=== PATIENT | female | born 1990 | race Caucasian/White ===

== ENCOUNTER 2024-03-15 00:36 | Emergency (ER) | payer BC, SELFPAY ==
[2024-03-15 00:40] VITALS: BP 130/80
[2024-03-15 01:00] LABS: % Basophils 0.5 % (0-2); % Eosinophils 0.5 % (0-6); % Immature Granulocytes 0.1 % (0-0.5); % Lymphocytes 48.4 % (20.5-51.1); % Monocytes 7.3 % (1.7-9.3); % Neutrophils 43.2 % (42.2-75.2); Absolute Lymphocytes 3.8 10^3/uL (1.2-3.4); Absolute Monocytes 0.6 10^3/uL (0.1-0.6); Absolute Neutrophils 3.4 10^3/uL (1.4-6.5); Hematocrit 37.2 % (37.0-47.0); Hemoglobin 12.5 g/dL (12.0-16.0); Mean Corp Hgb Conc. 33.6 g/dL (33.0-37.0); Mean Corpuscular Hgb 29.7 pg (27.0-31.0); Mean Corpuscular Volume 88.4 fL (81.0-99.0); Nucleated Red Blood Cells % 0 %; Platelet Count 308 10^3/uL (130-400); Red Blood Cell Count 4.21 10^6/uL (4.20-5.40); Red Cell Dist. Width 12.3 % (11.5-14.5); White Blood Cell Count 7.9 10^3/uL (4.8-10.8)
[2024-03-15 01:03] VITALS: BP 118/75
[2024-03-15 01:11] LABS: HCG, Serum Qualitative Screen Negative
[2024-03-15 01:26] LABS: Troponin I < 0.012 ng/ml
[2024-03-15 01:30] LABS: ALT (SGPT) 17 U/L (0-35); AST (SGOT) 20 U/L (14-36); Albumin 4.9 g/dl (3.5-5.0); Alkaline Phosphatase 57 U/L (38-126); Blood Urea Nitrogen 13 mg/dl (7-17); Calcium 10.1 mg/dl (8.4-10.2); Carbon Dioxide 26 mmol/L (22-30); Chloride 101 mmol/L (98-107); Glucose 118 mg/dl (70-99); Potassium 3.5 mmol/L (3.5-5.1); Sodium 138 mmol/L (135-145); Total Bilirubin 0.5 mg/dl (0.2-1.3); Total Protein 7.9 g/dl (6.3-8.2); eGFR > 60.00
[2024-03-15 02:00] VITALS: BP 122/79; BMI 19.6
[2024-03-15] MEDS: TORADOL 30 MG IM (02:29)
--- NOTE | 2024-03-15 02:58 | ED.GENMED ---
History of Present Illness
General
Chief Complaint: Chest Pain
Source: patient and spouse
Exam Limitations: none
Time Seen by Provider: 03/15/24 02:14
Nursing documentation reviewed up to this point in time: agreed with
History of Present Illness
History of Present Illness:
This is a 33-year-old woman with no significant past medical history save for anxiety. She admits to some chronic left scapular pain that generally improves when her massages her left scapular region. More recently over the past 5 days she
has had some left lateral thoracic pain that seems worse with palpation over left lateral intercostal/rib region, improves with occasional doses of Tylenol or ibuprofen 'when I remember to take them' but admits to not being consistent with
nyhi-sek-ryccqae pain medication. Pain is improved with local lidocaine patch as well. She denies cough nor shortness of breath, pain is not worsened when she takes a deep breath. No fever no chills, no leg pain or swelling. She denies neck
pain. No headache. No palpitations. No nausea nor vomiting nor abdominal pain. No rash. No weakness or numbness. No arm pain nor weakness.
She is right-hand dominant and admits that she generally carries her 2-year-old son on her left hip and has been more active, wrapping presents excetra over the past week or 2 ago.
No recent travel.
She does not believe she is , last menstrual period 1 month ago, she is due this week.
She takes no medicines on a regular basis.
Past History
Past History
ED Past Medical History: Psychiatric (Anxiety)
ED Past Surgical History: Orthopedic (Ankle) and Other ([place] teeth)
Social History
Tobacco: Non-smoker
Alcohol: Occasional
Drug: None
Personal:
Living: with family
Employment: Not employed
Family History
Family History: Other (Noncontributory)
Phy Exam
Physical Exam
Physical Exam:
GENERAL: 33-year-old woman appears her stated age, awake and alert, pleasant, appears in no acute distress. is accompanying.
EYE: anicteric
NECK: Supple, nontender, no meningismus, no significant adenopathy.
ENT: oral mucosa is moist. No rhinorrhea.
CARDIAC: Regular rate and rhythm. no murmur. No rub.
LUNGS: Clear breath sounds bilaterally, no acute respiratory distress, no wheezes/rales/rhonchi. Mild tenderness left lateral chest wall. Palpation seems to exactly reproduce patient's pain complaint. There is no rash. No soft tissue swelling.
ABDOMEN: Soft, nondistended, without focal tenderness, no r/g, no cvat. normoactive BS.
BACK: No midline bony tenderness. Mild tenderness left medial parascapular region.
NEUROLOGICAL: Alert and oriented x3, no focal neuro deficits. Gait is cas[place] and steady.
SKIN: Warm and dry, normal color, skin intact. No rash.
MUSCULOSKELETAL: No C/C/E. peripheral pulses are full and equal b/l. No palpable tenderness.
PSYCH: Normal and appropriate interaction.
Scores
Heart Score for Chest Pain Patients
STEMI patient?: No
History: Slightly or Non-Suspicious
ECG: Normal
Age: </= 45 years
Risk Factors: No Risk Factors
Troponin: </= Normal Limit
Heart Score for Chest Pain Patients: 0
Heart Score Risk: 2.5% MACE over next 6 weeks
Course
Orders/Labs/Results
Orders:
Orders
03/15/24 00:37
Electrocardiogram (*1) Urgent
Reason for Study: Chest Pain
EKG- Treatment ONCE
Test Result ONCE
03/15/24 00:52
Complete Blood Count/With Diff Urgent
Comprehensive Metabolic Panel Urgent
HCG, Serum Qualitative Screen Urgent
Troponin I Urgent
03/15/24 02:24
Ketorolac [Toradol] 30 mg IM NOW STA
03/15/24 02:25
CR Chest - 2 Views Urgent
Comment:
Reason For Exam: left lateral chest pain x 5 days
Abnormal Lab Results
03/15/24
00:52
Absolute Lymphs (auto) 3.8 H 10^3/uL
(1.2-3.4)
Glucose 118 H mg/dl
(70-99)
03/15/24 00:52
03/15/24 00:52
Vital Signs
Initial and Last Documented VS:
Initial Vital Signs
Temp Pulse Resp BP Pulse Ox
98.5 F 100 16 130/80 100
03/15/24 00:40 03/15/24 00:40 03/15/24 00:40 03/15/24 00:40 03/15/24 00:40
Last Documented Vital Signs
Temp Pulse Resp BP Pulse Ox
98.5 F 93 16 111/74 97
03/15/24 00:40 03/15/24 03:00 03/15/24 03:00 03/15/24 03:00 03/15/24 03:00
MDM/Problems Addressed
Differential Diagnosis Includes:
History and exam most consistent with musculoskeletal chest wall pain such as intercostal muscle strain. Rhomboid muscle strain.
Other consideration is pneumonia, pleural effusion.
No risk factors for thromboembolism nor symptoms suggestive of PE.
No history of CAD nor risk factors for such nor significant family history.
EKG is unremarkable, within normal limits.
Labs are unremarkable including negative troponin.
Will trial an IM dose of Toradol will check chest x-ray.
Chronic conditions affecting care: Psychiatric illness (History of anxiety. Patient admits to increased worry regarding chest discomfort.)
*Radiology
Radiology exam reviewed: preliminary read by ED provider (Chest x-ray is unremarkable)
*Pulse Oximetry
Patient hypoxic: no
*EKG
Interpreted by ED Provider?: Yes
Interpretation: normal
Comparison EKG: no comparison EKG present
Rate: normal
Rhythm: sinus
Mitchell: normal axis
Interval: normal interval
QRS Pattern: normal QRS
Ischemia: no ischemia
*Quality Intern Interpretation
Rate: normal
Interpretation: normal
Rhythm: sinus
*Critical Care Note
Total Time (30-74mins, 75-104mins- exclusive of procedures): Not Applicable
Update Note
Update Note:
03:25
Chest x-ray is unremarkable.
Patient feeling improved after IM dose of Toradol.
Will discharge to home with prescription for diclofenac to take twice daily for as needed pain.
Continue with local heat, lidocaine patch.
Prompt follow-up with PCP for recheck.
ED Attending Note
-
Portions of this chart may have been created with voice recognition software.� Occasional wrong word or��sound alike� substitutions may have occurred due to the inherent limitations of voice recognition software.
Discharge Plan
Departure
Patient Disposition: Home (Routine Discharge)
Date of Disposition: 03/15/24
Time of Disposition: 03:24
Patient with high blood pressure during this ER visit?: No
Condition: Good
Discharge Problem:
Intercostal muscle strain
Instructions: Exercises for Upper Back Pain, Muscle Strain ED
Prescriptions:
New
diclofenac potassium 50 mg tablet
50 mg PO BIDPRN PRN (Reason: Pain) Qty: 20 0RF
Rx Instructions:
take with food.
Referrals:
Marysol Henson MD [Family Provider] - Call in 1-3 days for appt
Interventions
Interventions:
*Risk Screen - Suicide Last Done: 03/15/24 00:40
*General Assessment Last Done: 03/15/24 00:40
*Neglect/Abuse Screening Last Done: 03/15/24 00:40
ED- Fall Risk Assessment Last Done: 03/15/24 02:01
*ED COVID-19 Vaccine History Last Done: 03/15/24 00:40
ED- Cardiac Assessment Last Done: 03/15/24 02:01
Discharge Date and Time
Print Language: LAO
[2024-03-15 03:00] VITALS: BP 111/74
== END 2024-03-15 03:32 | disposition home or self-care (01) ==
LOC: EMR 00:36
PROVIDERS: EMERGENCY PHYSICIAN Emergency Medicine; FAMILY PHYSICIAN Family Medicine
DX: S29.011A Strain of muscle and tendon of front wall of thorax, initial encounter (principal); X58.XXXA Exposure to other specified factors, initial encounter
CPT/HCPCS: 99285; 96372; 71046; 80053; 84484; 84703; 85025; 93005